=== PATIENT | male | born 1945 ===

== ENCOUNTER 2025-01-11 06:54 | Day surgery (SDC) | payer OTHER ==
[2025-01-05 09:50] LABS: BASO % 1.4 % (0.1-1.2); EOS # 0.29 (0.04-0.54); EOS % 5.7 % (0.7-7.0); HEMATOCRIT 39.6 % (40.1-51.0); HEMOGLOBIN 13.2 g/dL (13.7-17.5); LYMPH # 1.34 (1.18-3.74); LYMPH % 26.2 % (19.3-53.1); MEAN CORPUSCULAR HEMOGLOBIN 33.1 pg (25.6-32.2); MONO # 0.57 (0.24-0.82); MONO % 11.1 % (4.7-12.5); NEUT # 2.84 (1.56-6.13); NEUT % 55.4 % (34.0-71.1); PLATELET COUNT 154 K/uL (163-369); RED BLOOD COUNT 3.99 M/uL (4.63-6.08); RED CELL DISTRIBUTION WIDTH 12.5 % (11.6-14.4)
[2025-01-05 10:13] LABS: INR 1.02; PARTIAL THROMBOPLASTIN TIME 26.3 SECONDS (22.0-34.0); PROTHROMBIN TIME 11.1 SECONDS (9.0-11.5)
[2025-01-11] MEDS ORDERED: DIPHENHYDRAMINE HCL 50 MG/ML VIAL 1ML IV ONE (10:30)
[2025-01-11] MEDS ORDERED: MIDAZOLAM HCL 2 MG/2 ML VIAL IV ONE (10:30)
[2025-01-11] MEDS ORDERED: fentaNYL CITRATE 50 MCG/ML AMPUL IV PUSH ONE (10:30)
== END 2025-01-11 11:55 | disposition home or self-care (01) ==
LOC: AMB-ENDOS 06:54
PROVIDERS: ATTEND Internal Medicine
DX: K21.9 Gastro-esophageal reflux disease without esophagitis (principal); K29.00 Acute gastritis without bleeding; K31.7 Polyp of stomach and duodenum; R93.3 Abnormal findings on diagnostic imaging of other parts of digestive tract